=== PATIENT | female | born 1995 | race Two or more races ===

== ENCOUNTER 2017-08-02 15:19 | Emergency (ER) | payer OTHER ==
[2017-08-02 15:36] VITALS: BP 137/65
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
[2017-08-02] MEDS ORDERED: IBUPROFEN 600 MG TABLET PO STA (17:15)
== END 2017-08-02 17:20 | disposition home or self-care (01) ==
LOC: ED 15:19
DX: S20.219A Contusion of unspecified front wall of thorax, initial encounter (principal); V43.63XA Car passenger injured in collision with pick-up truck in traffic accident, initial encounter
CPT/HCPCS: 99282; 99283; A9270

== ENCOUNTER 2018-01-13 15:37 | Emergency (ER) | payer OTHER ==
[2018-01-13 15:42] VITALS: BP 110/94
[2018-01-13] MEDS ORDERED: predniSONE 20 MG TABLET PO STA (16:43)
[2018-01-13] MEDS ORDERED: LORATADINE 10 MG TABLET PO STA (16:45)
--- NOTE | 2018-01-13 16:49 | ED Physician Documentation ---
History of Present Illness - Stated complaint Stated Complaint: RASH - Chief complaint Chief Complaint: General - Additonal information Additional information: hx from pt 22 y/o AD [place] female rash to face after new face wash red and itchy no oral swelling denies preg Review of Systems Constitutional: denies: Fever Respiratory: denies: Dyspnea : denies: Now EGA Skin: reports: Rash PD PAST MEDICAL HISTORY - Past Medical History Cardiovascular: None Respiratory: None Endocrine/Autoimmune: None - Past Surgical History Past Surgical History: No - Present Medications Home Medications: Ambulatory Orders Medication Instructions Recorded Confirmed Loratadine [Claritin] 10 mg PO DAILY #3 tablet 01/13/18 - Allergies Allergies/Adverse Reactions: Allergies Allergy/AdvReac Type Severity Reaction Status Date / Time bee venom protein (honey bee) Allergy Rash Verified 01/13/18 15:44 shellfish derived Allergy Rash Verified 01/13/18 15:44 - Social History Does the pt smoke?: No Smoking Status: Never smoker Does the pt drink ETOH?: No Does the pt have substance abuse?: No - Immunizations Immunizations are current?: Yes - POLST Patient has POLST: No PD ED PE NORMAL - Vitals Vital signs reviewed: Yes - HEENT HEENT: Other (no oral edema) - Cardiac Cardiac: RRR - Respiratory Respiratory: No respiratory distress, Clear bilaterally - Derm Derm: Other (erythema, slighty scaling and myrtle papules to face) Results - Vitals Vitals: Vital Signs - 24 hr 01/13/18 15:39 Temperature 36.1 C L Heart Rate 81 Respiratory 12 Rate Blood Pressure 110/94 H O2 Saturation 100 Oxygen O2 Source Room air PD MEDICAL DECISION MAKING - ED course ED course: itchy erythema contact derm rash not anaphylaxis Departure - Departure Disposition: 01 Home, Self Care Clinical Impression: Contact dermatitis Qualifiers: Contact dermatitis type: allergic Contact dermatitis trigger: cosmetics Qualified Code(s): L23.2 - Allergic contact dermatitis due to cosmetics Condition: Good Instructions: ED Dermatitis Contact Follow-Up: ANDREW KEMP MD [Primary Care Provider] - Prescriptions: Loratadine [Claritin] 10 mg PO DAILY #3 tablet Comments: Stop using that face wash. Just use a very mild soap like unscented Dove and water for the next week Take the claritin once a day until rash is better Return if worse Forms: Activity restrictions
== END 2018-01-13 17:23 | disposition home or self-care (01) ==
LOC: ED 15:37
DX: L23.2 Allergic contact dermatitis due to cosmetics (principal)
CPT/HCPCS: 99282; 99283; A9270; J7512

== ENCOUNTER 2019-06-04 21:29 | Emergency (ER) | payer OTHER ==
[2019-06-04 21:35] VITALS: BP 140/78
--- NOTE | 2019-06-04 21:51 | ED Physician Documentation ---
History of Present Illness - Stated complaint Stated Complaint: FEM - Chief complaint Chief Complaint: UTI - History obtained from History obtained from: Patient - Additonal information Additional information: Patient comes emergency department complaining of ongoing dysuria and lower abdominal pain/cramping after completing a 5-day course of antibiotics for UTI this morning. Patient states she was also on Pyridium, but cannot remember what antibiotic she took. She states that she does not quite feel that her UTI is gone. Patient denies nausea or vomiting. No chills. No cough or shortness of breath. No vaginal symptoms other than currently being on her period. Patient states she is otherwise healthy. No other complaints at this time. Review of Systems Ten Systems: 10 systems reviewed and negative Constitutional: reports: Reviewed and negative Eyes: reports: Reviewed and negative Ears: reports: Reviewed and negative Nose: reports: Reviewed and negative Throat: reports: Reviewed and negative Cardiac: reports: Reviewed and negative Respiratory: reports: Reviewed and negative GI: reports: Reviewed and negative : reports: Dysuria, Frequency, Vaginal bleeding Skin: reports: Reviewed and negative Musculoskeletal: reports: Reviewed and negative Neurologic: reports: Reviewed and negative Psychiatric: reports: Reviewed and negative Endocrine: reports: Reviewed and negative Immunocompromised: reports: Reviewed and negative PD PAST MEDICAL HISTORY - Past Medical History Past Medical History: Yes Cardiovascular: None Respiratory: None Endocrine/Autoimmune: None Other Past Medical History: Recently DX w/ UTI - Past Surgical History Past Surgical History: No - Present Medications Home Medications: Ambulatory Orders Medication Instructions Recorded Confirmed Loratadine [Claritin] 10 mg PO DAILY #3 tablet 01/13/18 06/04/19 Nitrofurantoin Monohyd/M-Cryst 100 mg PO BID #10 capsule 05/31/19 06/04/19 [Macrobid 100 mg Capsule] Phenazopyridine HCl [Pyridium] 200 mg PO TID PRN #6 tablet 05/31/19 06/04/19 - Allergies Allergies/Adverse Reactions: Allergies Allergy/AdvReac Type Severity Reaction Status Date / Time bee venom protein (honey bee) Allergy Rash Verified 06/04/19 21:42 shellfish derived Allergy Rash Verified 06/04/19 21:42 - Social History Does the pt smoke?: No Smoking Status: Never smoker Does the pt drink ETOH?: No Does the pt have substance abuse?: No - Immunizations Immunizations are current?: Yes - POLST Patient has POLST: No PD ED PE NORMAL - Vitals Vital signs reviewed: Yes - General General: Alert and oriented X 3, No acute distress - HEENT HEENT: Atraumatic, PERRL, EOMI, Moist mucous membranes - Neck Neck: Supple, no meningeal sign - Cardiac Cardiac: RRR, No murmur - Respiratory Respiratory: No respiratory distress, Clear bilaterally - Abdomen Abdomen: Soft, Non distended, Other (Moderate tenderness across lower abdomen bilaterally, but worse on left.) - Derm Derm: Normal color, Warm and dry, No rash - Extremities Extremities: No deformity, Normal ROM s pain - Neuro Neuro: Alert and oriented X 3, mirror machine feeder 2-12 intact, No motor deficit, No sensory deficit, Normal speech, Other (Grossly normal) - Psych Psych: Normal mood, Normal affect Results - Vitals Vitals: Vital Signs - 24 hr 06/04/19 21:33 Heart Rate 80 Respiratory 16 Rate Blood Pressure 140/78 H O2 Saturation 100 Oxygen O2 Source Room air
[2019-06-04 21:54] LABS: GLUCOSE, URINE (UA) NEGATIVE (NEGATIVE); KETONES,URINE (UA) NEGATIVE (NEGATIVE); LEUKOCYTE ESTERASE, URINE MODERATE (NEGATIVE); OCCULT BLOOD,URINE LARGE (NEGATIVE); PH,URINE 6.5 PH (5.0-7.5)
[2019-06-04 22:00] LABS: CLARITY,URINE INTERFERENCES (CLEAR)
[2019-06-04 22:01] LABS: BACTERIA,URINE None Seen /HPF (None Seen); BILIRUBIN,URINE NEGATIVE (NEGATIVE); HCG UR QUAL NEGATIVE; ICTOTEST,URINE NEGATIVE; RBC,URINE TNTC /HPF (0-5); SQUAMOUS EPITHELIAL CELL,UR RARE Squamous (<= Few)
[2019-06-04] MEDS ORDERED: CIPROFLOXACIN 250 MG TABLET PO STA (22:08)
== END 2019-06-04 22:14 | disposition home or self-care (01) ==
LOC: ED 21:29
DX: N30.90 Cystitis, unspecified without hematuria (principal)
CPT/HCPCS: 81001; 81025; 87077; 87086; 87181; 99283; 99284; A9270; 81003

== ENCOUNTER 2019-10-16 21:33 | Emergency (ER) | payer OTHER ==
[2019-10-16 21:40] VITALS: BP 107/76
[2019-10-16] MEDS ORDERED: CHERRY SYRUP 10 ML UDC PO ONE (21:53)
[2019-10-16] MEDS ORDERED: DEXAMETHASONE 10 MG/ML VIAL PO STA (21:53)
--- NOTE | 2019-10-16 21:54 | ED Physician Documentation ---
PD HPI WOUND RECHECK - Stated complaint Stated Complaint: RT LEG PX - Chief complaint Chief Complaint: Wound - Histroy obtained from History obtained from: Patient (Something stung her on the right ankle while she was walking her dog at 6 AM this morning. There is a red swollen area that is itchy. No fevers.) Review of Systems Constitutional: reports: Reviewed and negative Eyes: reports: Reviewed and negative Ears: reports: Reviewed and negative Cardiac: reports: Reviewed and negative PD PAST MEDICAL HISTORY - Past Medical History Cardiovascular: None Respiratory: None Endocrine/Autoimmune: None - Past Surgical History Past Surgical History: No - Present Medications Home Medications: Ambulatory Orders Medication Instructions Recorded Confirmed Loratadine [Claritin] 10 mg PO DAILY #3 tablet 01/13/18 06/04/19 Nitrofurantoin Monohyd/M-Cryst 100 mg PO BID #10 capsule 05/31/19 06/04/19 [Macrobid 100 mg Capsule] Phenazopyridine HCl [Pyridium] 200 mg PO TID PRN #6 tablet 05/31/19 06/04/19 Ciprofloxacin HCl [Cipro] 500 mg PO BID #20 tablet 06/04/19 - Allergies Allergies/Adverse Reactions: Allergies Allergy/AdvReac Type Severity Reaction Status Date / Time bee venom protein (honey bee) Allergy Rash Verified 10/16/19 21:37 shellfish derived Allergy Rash Verified 10/16/19 21:37 - Social History Does the pt smoke?: No Smoking Status: Never smoker Does the pt drink ETOH?: No Does the pt have substance abuse?: No - Immunizations Immunizations are current?: Yes - POLST Patient has POLST: No PD ED PE NORMAL - Vitals Vital signs reviewed: Yes - General General: Alert and oriented X 3, No acute distress - Extremities Extremities: Other (There is about a 2 cm round area of redness on the lateral right ankle without cellulitis or limited range of motion.) - Neuro Neuro: Alert and oriented X 3, Normal speech Results - Vitals Vitals: Vital Signs - 24 hr 10/16/19 21:37 Temperature 36.5 C Heart Rate 98 Respiratory 14 Rate Blood Pressure 107/76 O2 Saturation 99 Oxygen O2 Source Room air Departure - Departure Disposition: 01 Home, Self Care Clinical Impression: Bug bite without infection Qualifiers: Encounter type: initial encounter Qualified Code(s): W57.XXXA - Bitten or stung by nonvenomous insect and other nonvenomous arthropods, initial encounter Condition: Good Record reviewed to determine appropriate education?: Yes Instructions: ED Bite Insect Comments: The steroids should help, you can also apply hydrocortisone cream which is available [id number]. Return if worsening or if you develop a fever.
== END 2019-10-16 22:02 | disposition home or self-care (01) ==
LOC: ED 21:33
DX: S90.561A Insect bite (nonvenomous), right ankle, initial encounter (principal); W57.XXXA Bitten or stung by nonvenomous insect and other nonvenomous arthropods, initial encounter; Y93.K1 Activity, walking an animal
CPT/HCPCS: 99282; A9270